=== PATIENT | female | born 1985 | race Caucasian/White ===

== ENCOUNTER 2020-03-31 19:06 | Emergency (ER) | payer MEDICAID, SELFPAY ==
--- NOTE | ~2020-03-31 | XR_ITS ---
EXAMINATION:XR_[id number] DATE: 03/31/2020 20:09 INDICATION: Neck pain TECHNIQUE: AP, lateral, and odontoid views of the cervical spine are provided. COMPARISON: None FINDINGS: Alignment is normal. The odontoid is intact. No fracture is identified. Vertebral body heig hts and disk spaces are normal. Prevertebral soft tissues are normal. IMPRESSION: 1. No radiographic correlate for the patient's symptoms. Reviewed, dictated and finalized at location A.
--- NOTE | ~2020-03-31 | XR_ITS ---
EXAMINATION: XR shoulder LT min 2V INDICATION: Left shoulder pain TECHNIQUE: Four views of the left shoulder are submitted. COMPARISON: None FINDINGS: Normal alignment. No fracture. Glenohumeral and acromioclavicular joint spaces are normal. Soft tissues are unremarkable. IMPRESSION: No acute osseous abnormality. Reviewed, dictated and finalized at location A.
[2020-03-31 19:11] VITALS: BP 138/94; PULSE 110; RESP 16; TEMP 37.2; O2SAT 99
--- NOTE | 2020-03-31 20:06 | ED.GENADULT ---
HPI - General Adult General Chief complaint: Extremity Injury, Upper Stated complaint: L SHOULDER INJURY S/P FALL Time Seen by Provider: 03/31/20 19:19 History of Present Illness HPI narrative: Patient is a 35-year-old female who presents to the ER with left shoulder pain. Patient tripped over her cat yesterday falling backwards and hitting a coffee table. She also felt some discomfort in the left neck. She did not lose consciousness. She reports if she turns her head to the right she can feel pain radiating down her left shoulder and if she holds her hand in front of her chest she can get some tingling in her fingers. She has contusion and abrasion to the posterior aspect of her left upper extremity over the triceps. She reports she has full range of motion but has posterior shoulder pain when bring her arm back down to neutral position. Related Data Allergies Allergy/AdvReac Type Severity Reaction Status Date / Time NSAIDS (Non-Steroidal Allergy Severe RENAL Verified 02/21/19 15:51 Anti-Inflamma FAILURE SSRI'S Allergy Severe TONGUE AND Uncoded 08/16/18 09:55 THROAT SWELLING Review of Systems Review of Systems: All systems reviewed & are unremarkable except as noted in HPI and below Constitutional: Constitutional: Denies fever(s) and Denies weakness Musculoskeletal: Musculoskeletal: Denies back pain, Reports arthralgias and Denies joint swelling Comments: Neck pain Neurologic: Denies dizziness, Denies focal weakness, Reports numbness (Intermittent) and Denies weakness PMFSH Past Medical History Medical History (Updated 03/31/20 @ 21:19 by Inder Loera MD) Anxiety Depression Fibromyalgia Surgical History Surgical History (Updated 03/31/20 @ 20:17 by Inder Loera MD) H/O tubal ligation Social History Social History (Updated 03/31/20 @ 21:17 by Inder Loera MD) Social History: Non-smoker Exam Narrative: Exam Narrative: GENERAL: Well-appearing, well-nourished, and in no acute distress. HEAD: Normocephalic, atraumatic. ENT: Mucous membranes moist. Neck: No midline tenderness of the cervical spine but there is paraspinal muscular tenderness on the left side. Range of motion is intact. CHEST: Clear to auscultation. No respiratory distress. HEART: Regular rate and rhythm. Normal peripheral pulses. EXTREMITIES: Focused exam of left upper extremity reveals full range of motion at the shoulder with normal strength. There is bruising and abrasion over the triceps extending up to the axilla. No point tenderness of the shoulder. SKIN: Warm, dry, no rash. NEURO: No focal deficits. Alert and oriented x3. Course Course Emergency Course: Muscle strain with radicular symptoms. Discharge home. Vital Signs Vital signs: Vital Signs Temperature 99 F 03/31/20 19:11 Pulse Rate 110 H 03/31/20 19:11 Respiratory Rate 16 03/31/20 19:11 Blood Pressure 138/94 H 03/31/20 19:11 Pulse Oximetry 99 03/31/20 19:11 Temperature 99 F 03/31/20 19:11 Pulse Rate 110 H 03/31/20 19:11 Respiratory Rate 16 03/31/20 19:11 Blood Pressure 138/94 H 03/31/20 19:11 Pulse Oximetry 99 03/31/20 19:11 Medical Decision Making Vital Signs Vital Signs: Vital Signs Temperature 99 F 03/31/20 19:11 Pulse Rate 110 H 03/31/20 19:11 Respiratory Rate 16 03/31/20 19:11 Blood Pressure 138/94 H 03/31/20 19:11 Pulse Oximetry 99 03/31/20 19:11 Temperature 99 F 03/31/20 19:11 Pulse Rate 110 H 03/31/20 19:11 Respiratory Rate 16 03/31/20 19:11 Blood Pressure 138/94 H 03/31/20 19:11 Pulse Oximetry 99 03/31/20 19:11 Imaging Data Radiologist's impression: ITS Impressions Shoulder X-Ray 03/31/20 19:51 IMPRESSION: No acute osseous abnormality. Cervical Spine X-Ray 03/31/20 20:12 IMPRESSION: 1. No radiographic correlate for the patient's symptoms. Discharge Plan Discharge Clinical Impression: Cervical radiculopathy
[2020-03-31 21:24] VITALS: BP 122/80; PULSE 80; RESP 20; O2SAT 98
== END 2020-03-31 21:26 | disposition home or self-care (01) ==
PROVIDERS: Emergency Provider Emergency Medicine
DX: M54.12 Radiculopathy, cervical region (principal); S16.1XXA Strain of muscle, fascia and tendon at neck level, initial encounter; W18.31XA Fall on same level due to stepping on an object, initial encounter; F41.9 Anxiety disorder, unspecified; F32.9 Major depressive disorder, single episode, unspecified
CPT/HCPCS: 72040; 73030; 99284

== ENCOUNTER 2020-06-30 09:30 | Outpatient (CLI) | payer OTHER, SELFPAY ==
--- NOTE | ~2020-06-30 | US_ITS ---
EXAMINATION: US pelvic complete w TV DATE: 06/30/2020 10:25 INDICATION: Intrauterine device placement. TECHNIQUE: Multiple transabdominal and transvaginal sonographic images of the pelvis were obtained. COMPARISON: Ultrasound 07/08/2018 FINDINGS: TRANSABDOMINAL ULTRASOUND: The uterus measures 6.4 x 2.8 x 2.5 cm. There is no free fluid in the pelvis. TRANSVAGINAL ULTRASOUND: The endometrial complex measures 5 mm in thickness. There is an intrauterine device in expected posit ion. The right ovary measures 2.9 x 2.1 x 1.8 cm. The left ovary is not visualized. IMPRESSION: 1. Intrauterine device in expected position. Reviewed, dictated and finalized at location A.
== END 2020-06-30 09:31 | disposition home or self-care (01) ==
PROVIDERS: Visit Provider Obstetrics & Gynecology
DX: Z30.431 Encounter for routine checking of intrauterine contraceptive device (principal)
CPT/HCPCS: 76830; 76856

== ENCOUNTER 2023-05-19 13:20 | Emergency (ER) | payer BC, MEDICAID, SELFPAY ==
[2023-05-19 13:45] VITALS: BP 145/85; PULSE 108; RESP 18; TEMP 36.2; O2SAT 99
[2023-05-19 16:15] LABS: Strep Group A RT-PCR NOT DETECTED (Negative)
[2023-05-19] MEDS: LIDOCAINE HCL 2% VISC SOLN 15 ML UDC PO (17:01)
[2023-05-19 17:38] LABS: Monoscreen Negative (Negative); Negative Monotest Control Negative (Negative); Positive Monotest Control Positive (Positive)
--- NOTE | 2023-05-19 18:12 | ED.GENADULT ---
HPI - General Adult General Chief complaint: Unspecified Stated complaint: infected tonsil Time Seen by Provider: 05/19/23 15:40 History of Present Illness HPI narrative: Patient is a 38-year-old female who presents ER for concerns of strep throat. Reports she began having sore throat last 2 days with sinus congestion and cough. She reports she is having fevers and chills. She had to crawl to the bathroom last night due to her chills and needing to have a warm shower. She is able to eat and drink but has pain with swallowing. No known sick contacts. Cannot identify any alleviating factors. Related Data Allergies Allergy/AdvReac Type Severity Reaction Status Date / Time NSAIDS (Non-Steroidal Allergy Severe RENAL Verified 02/21/19 15:51 Anti-Inflamma FAILURE morphine Allergy Unknown Verified 05/19/23 13:22 SSRI'S Allergy Severe TONGUE AND Uncoded 08/16/18 09:55 THROAT SWELLING Review of Systems Constitutional: Constitutional: Reports chills, Reports fatigue and Reports fever(s) ENT: Denies hoarseness, Reports nasal congestion, Reports sore throat and Denies throat swelling Respiratory: Respiratory: Reports cough, Denies dyspnea and Denies wheezing PMFSH Past Medical History Medical History (Updated 05/19/23 @ 18:13 by Inder Loera MD) Anxiety Depression Fibromyalgia Surgical History Surgical History (Updated 03/31/20 @ 20:17 by Inder Loera MD) H/O tubal ligation Social History Social History (Updated 03/31/20 @ 21:17 by Inder Loera MD) Social History: Non-smoker Exam Narrative: GENERAL: Well-appearing, well-nourished, and in no acute distress. HEAD: Normocephalic, atraumatic. ENT: Mucous membranes moist. Tonsillar hypertrophy with exudate bilaterally. Uvula midline and nonedematous. No evidence of S[employer]IOR GAMEM[employer]. Tolerating oral secretions without issue. No hot potato voice. NECK: Tender anterior cervical chain lymphadenopathy with normal range of motion CHEST: Clear to auscultation. No respiratory distress. EXTREMITIES: Normal range of motion. No edema. NEURO: N Alert and oriented x3. PSYCH: Normal mood and affect. Course Course Emergency Course: Patient has improvement in pain with viscous lidocaine. Discharge home. Discussed that mono and strep testing are negative. That this felt to be a viral pharyngitis. Vital Signs Vital signs: Vital Signs Temperature 97.1 F L 05/19/23 13:45 Pulse Rate 108 H 05/19/23 13:45 Respiratory Rate 18 05/19/23 13:45 Blood Pressure 145/85 H 05/19/23 13:45 Pulse Oximetry 99 05/19/23 13:45 Oxygen Delivery Room Air 05/19/23 13:45 Temperature 98.2 F 05/19/23 18:31 Pulse Rate 98 05/19/23 18:31 Respiratory Rate 17 05/19/23 18:31 Blood Pressure 148/86 H 05/19/23 18:31 Pulse Oximetry 99 05/19/23 18:31 Oxygen Delivery Room Air 05/19/23 13:45 Medical Decision Making Vital Signs Vital Signs: Vital Signs Temperature 97.1 F L 05/19/23 13:45 Pulse Rate 108 H 05/19/23 13:45 Respiratory Rate 18 05/19/23 13:45 Blood Pressure 145/85 H 05/19/23 13:45 Pulse Oximetry 99 05/19/23 13:45 Oxygen Delivery Room Air 05/19/23 13:45 Temperature 98.2 F 05/19/23 18:31 Pulse Rate 98 05/19/23 18:31 Respiratory Rate 17 05/19/23 18:31 Blood Pressure 148/86 H 05/19/23 18:31 Pulse Oximetry 99 05/19/23 18:31 Oxygen Delivery Room Air 05/19/23 13:45 Lab Data Labs: Lab Results 05/19/23 05/19/23 Range/Units 15:41 16:49 Monoscreen Negative (Negative) Group A Strep (PCR) Not detected (Negative) Discharge Plan Discharge Clinical Impression: Pharyngitis Patient Disposition: Home, Self-Care Condition: Stable Instructions: Pharyngitis (ED) Additional Instructions: Return to the ER if you cannot breathe, cannot swallow, you have chest pain or shortness of breath, you have additional concerns. Prescriptions: New lidocaine
[2023-05-19 18:31] VITALS: BP 148/86; PULSE 98; RESP 17; TEMP 36.8; O2SAT 99
== END 2023-05-19 18:34 | disposition home or self-care (01) ==
PROVIDERS: Nurse Practitioner Adult Health; Emergency Provider Emergency Medicine
DX: J02.9 Acute pharyngitis, unspecified (principal); M79.7 Fibromyalgia
CPT/HCPCS: 36415; 86308; 87651; 99283

== ENCOUNTER 2024-08-17 16:32 | Outpatient (CLI) | payer BC, SELFPAY ==
--- NOTE | ~2024-08-17 | CT_ITS ---
EXAMINATION: CT sinus wo con DATE: 08/17/2024 16:47 INDICATION: Chronic sinusitis. TECHNIQUE: Computed tomography (CT) of the paranasal sinuses was performed without intravenous contra st. Iterative reconstruction technique was employed. The dose-length product was 324.57 mGy-cm. COMPARISON: None FINDINGS: The frontal, ethmoid, sphenoid, and maxillary sinuses are clear. There is leftward deviatio n of the nasal septum. There is lisa bullosa involving left middle turbinate. The ostiomeatal units are patent. IMPRESSION: 1. Leftward deviation of the nasal septum. Reviewed, dictated and finalized at location A.
== END 2024-08-17 16:33 | disposition home or self-care (01) ==
LOC: ANHIMG 16:33
PROVIDERS: Visit Provider Otolaryngology
DX: J32.9 Chronic sinusitis, unspecified (principal); J34.2 Deviated nasal septum
CPT/HCPCS: 70486